=== PATIENT | male | born 1945 | race Caucasian/White ===

== ENCOUNTER 2024-03-26 06:06 | Day surgery (SDC) | payer MEDICARE ==
[~2024-03-26 06:06] MED LIST: BETADINE 5% OPHTHALMIC 30 ML OP ONE; NON-FORMULARY ITEM OP ONE; cefUROXime sodium 0.005 GM in Sodium Chloride Flush 30 ML*** 0.5 ML IJ ONE
[2024-03-26] MEDS ORDERED: Epinephrine Preservative Free 1 MG/ML IJ ONE (06:07)
[2024-03-26] MEDS ORDERED: MIOSTAT IO ONE (06:07)
[2024-03-26] MEDS ORDERED: Lactated Ringers 1,000 ML IV ONE (06:25)
[2024-03-26 06:50] LABS: Absolute Neutrophil Ct (ANC) 2.68 x10^3/uL (1.78-5.38); BASOPHIL % 1.7 % (0.2-1.2); Basophil (Absolute #) 0.08 x10^3/uL (0.01-0.08); Eosinophil % 9.5 % (0.8-7.0); Eosinophil (Absolute #) 0.45 x10^3/uL (0.04-0.54); Hematocrit 39.7 % (40.1-51.0); Hemoglobin 13.1 g/dL (13.7-17.5); IMMATURE GRAN # 0.01 x10^3u/L (0.001-0.031); IMMATURE GRAN % 0.2 % (0.001-0.429); Lymphocyte (Absolute #) 1.23 x10^3/uL (1.32-3.57); Lymphocytes % 25.8 % (21.8-53.1); Mean Cell Volume 86.7 fL (79.0-92.2); Mean Corpuscular Hemoglobin 28.6 pg (25.7-32.2); Mean Platelet Volume 12.9 fL (9.4-12.4); Monocyte (Absolute #) 0.31 x10^3/uL (0.30-0.82); Monocytes % 6.5 % (5.3-12.2); Neutrophil % 56.3 % (34.0-67.9); Platelet Count 80 x10^3/uL (163-337); Red Blood Count 4.58 x10^6/uL (4.63-6.08); Red Cell Distribution Width 14.5 % (11.6-14.4); White Blood Count 4.8 x10^3/uL (4.23-9.07)
[2024-03-26] MEDS: TETRACAINE 0.5% STERI-UNIT SOL OP ONE ×2 (06:55→07:15)
[2024-03-26] MEDS: Ak-Dilate OPHTHALMIC*** 1.065 ML, Cyclogyl 1% OPHTH SOL 1.065 ML, GATIFLOXACIN 0.5% OPH... OP ONE (06:55)
[2024-03-26 06:56] LABS: ALBUMIN 3.9 g/dL (3.5-5.0); ANION GAP 14.8 MEQ/L (5-15); Calcium 9.6 mg/dL (8.4-10.2); Creatinine 1 0.94 mg/dL (0.66-1.25); EST GLOMERULAR FILTRATION RATE 83.5 ML/MIN; Potassium 4.2 mmol/L (3.5-5.1)
[2024-03-26] MEDS: Lactated Ringers 1,000 ML IV SCH (07:06)
[2024-03-26] MEDS ORDERED: DIPRIVAN 200 MG/20 ML IV ONE ×3 (07:13→09:34)
[2024-03-26] MEDS ORDERED: DEXMEDETOMIDINE 80 MCG/20ML-NS IV ONE (07:13)
[2024-03-26] MEDS ORDERED: Versed 2 MG/2 ML Injection ONE (07:13)
[2024-03-26 07:14] LABS: Slide Review 1 YES
[2024-03-26] MEDS ORDERED: Xylocaine-Mpf 2% 5 Ml Vial ONE (07:19)
[2024-03-26] MEDS ORDERED: Zofran 4 MG/2 ML VIAL IV PRN (07:30)
[2024-03-26] MEDS ORDERED: ROBINUL ONE (07:40)
[2024-03-26 09:49] VITALS: TEMP 97.5; O2SAT 94
[2024-03-26] MEDS: ACETAZOLAMIDE 250 MG TABLET PO ONE (09:59)
[2024-03-26 10:03] VITALS: BP 146/76; PULSE 76; RESP 18
== END 2024-03-26 10:19 | disposition home or self-care (01) ==
LOC: SDC 06:06
PROVIDERS: ATTEND Ophthalmology
DX: H25.812 Combined forms of age-related cataract, left eye (principal); E11.9 Type 2 diabetes mellitus without complications; I10 Essential (primary) hypertension
CPT/HCPCS: 36415; 80053; 82947; 85025; 93005; C1780; J0171; J2250; J2704; A9270-GY

== ENCOUNTER 2024-04-23 07:10 | Day surgery (SDC) | payer MEDICARE, OTHER ==
[2024-04-23] MEDS ORDERED: Lactated Ringers 1,000 ML IV ONE (07:12)
[2024-04-23 07:38] VITALS: RESP 16
[2024-04-23] MEDS: Lactated Ringers 1,000 ML IV SCH (07:40)
[2024-04-23] MEDS: TETRACAINE 0.5% STERI-UNIT SOL OP ONE ×2 (07:46→08:36)
[2024-04-23] MEDS: Ak-Dilate OPHTHALMIC*** 1.065 ML, Cyclogyl 1% OPHTH SOL 1.065 ML, GATIFLOXACIN 0.5% OPH... OP ONE (07:56)
[2024-04-23] MEDS ORDERED: Zofran 4 MG/2 ML VIAL IV PRN (09:00)
[2024-04-23] MEDS ORDERED: Epinephrine Preservative Free 1 MG/ML IJ ONE (09:00)
[2024-04-23 09:03] LABS: Hematocrit 39.5 % (40.1-51.0); Mean Cell Volume 86.6 fL (79.0-92.2); Mean Corpuscular Hemoglobin 28.5 pg (25.7-32.2); Mean Corpuscular Hgb Concent. 32.9 g/dL (32.3-36.5); Platelet Count 74 x10^3/uL (163-337); Red Blood Count 4.56 x10^6/uL (4.63-6.08); Red Cell Distribution Width 14.9 % (11.6-14.4); White Blood Count 3.9 x10^3/uL (4.23-9.07)
[2024-04-23] MEDS ORDERED: SUBLIMAZE 100 MCG/2 ML ONE ×2 (09:13→09:39)
[2024-04-23] MEDS ORDERED: Versed 2 MG/2 ML Injection ONE ×2 (09:13→09:40)
[2024-04-23 09:16] LABS: ALBUMIN 4.1 g/dL (3.5-5.0); ANION GAP 14.9 MEQ/L (5-15); BILIRUBIN,TOTAL 2.1 mg/dL (0.2-1.3); Creatinine 1 0.93 mg/dL (0.66-1.25); EST GLOMERULAR FILTRATION RATE 84.6 ML/MIN; Potassium 3.9 mmol/L (3.5-5.1)
[2024-04-23] MEDS ORDERED: DEXMEDETOMIDINE 80 MCG/20ML-NS IV ONE (09:48)
[2024-04-23] MEDS ORDERED: DIPRIVAN 200 MG/20 ML IV ONE ×2 (09:49→10:04)
[2024-04-23] MEDS ORDERED: LOPRESSOR INJECTION IV ONE (10:04)
[2024-04-23 10:29] VITALS: PULSE 86
[2024-04-23] MEDS: ACETAZOLAMIDE 250 MG TABLET PO ONE (10:32)
[2024-04-23 10:37] VITALS: BP 110/84; TEMP 97.3; O2SAT 94
== END 2024-04-23 10:49 | disposition home or self-care (01) ==
LOC: SDC 07:10
PROVIDERS: ATTEND Ophthalmology
DX: H25.811 Combined forms of age-related cataract, right eye (principal); E11.9 Type 2 diabetes mellitus without complications
CPT/HCPCS: 36415; 80053; 82947; 85027; 93005; C1780; J0171; J2250; J2704; J3010; A9270-GY